=== PATIENT | female | born 1990 | race Caucasian/White ===

== ENCOUNTER 2023-08-13 18:29 | Outpatient (CLI) | payer OTHER, SELFPAY | END 2023-08-13 18:30 | disposition home or self-care (01) | PROVIDERS: PCP Emergency Medicine; Visit Provider Emergency Medicine | DX: R51.9 Headache, unspecified (principal) | CPT/HCPCS: 80048; 86140 ==

== ENCOUNTER 2023-08-23 06:59 | Outpatient (CLI) | payer OTHER, SELFPAY ==
--- NOTE | 2023-08-23 07:15 | CRLHL7_ITS ---
For Patients: As a result of the Century Cures Act, medical imaging exams and procedure reports are released immediately into your electronic medical record. You may view this report before your referring provider. If you have questions, please contact your health care provider. Indication: Headache. Technique: Multiplanar, multisequence MRI of the brain was performed without intravenous contrast. Comparison: None relevant available. Findings: The corpus callosum, optic chiasm, pituitary gland, clivus, brainstem and cerebellum appear intact. The craniocervical junction appears preserved. There is no restricted diffusion. No intracranial hemorrhage. The ventricles are proportionate to the cerebral sulci. The 4th ventricle appears midline. The basal cisterns appear patent. No abnormal extra-axial fluid collection identified. There is no intracranial mass, abnormal mass-effect or midline shift identified. Major intracranial vascular flow voids appear grossly intact. Both globes are preserved. Impression: Unremarkable MRI of the brain. Dictated by Jong Piper MD @ 08/23/2023 8:30:22 AM (Electronically Signed)
== END 2023-08-23 07:00 | disposition home or self-care (01) ==
LOC: MRI 07:00
PROVIDERS: PCP Emergency Medicine; Visit Provider Emergency Medicine
DX: R51.9 Headache, unspecified (principal)
CPT/HCPCS: 70551

== ENCOUNTER 2024-03-17 08:53 | Outpatient (CLI) | payer OTHER, SELFPAY | END 2024-03-17 08:54 | disposition home or self-care (01) | LOC: NFLDREF 03-21 15:02 | PROVIDERS: PCP Emergency Medicine; Referring Provider Emergency Medicine; Visit Provider Physician Assistant | DX: Z01.419 Encounter for gynecological examination (general) (routine) without abnormal findings (principal); Z13.6 Encounter for screening for cardiovascular disorders; Z13.1 Encounter for screening for diabetes mellitus | CPT/HCPCS: 80061; 82947 ==